=== PATIENT | female | born 1950 | race Caucasian/White ===

== ENCOUNTER 2019-07-14 12:41 | Outpatient (CLI) | payer MEDICARE, OTHER ==
--- NOTE | 2019-07-14 13:03 | RAD ---
RADIOGRAPH CHEST 2 VIEWS: DATE: 07/14/2019 HISTORY: 69-year-old female with dyspnea FINDINGS: There is no airspace density, pulmonary edema, pleural effusion, pneumothorax, or cardiomegaly. IMPRESSION: No acute cardiopulmonary findings.
== END 2019-07-14 12:42 | disposition home or self-care (01) ==
LOC: RAD 12:41
PROVIDERS: ATTEND Internal Medicine Critical Care Medicine
DX: R06.00 Dyspnea, unspecified (principal)
CPT/HCPCS: 71046